=== PATIENT | male | born 1950 | race Two or more races ===

== ENCOUNTER 2017-08-03 05:32 | Emergency (ER) | payer SELFPAY ==
[~2017-08-03] VITALS: Ht 185.4 cm; Wt 104.3 kg
[2017-08-03] MEDS ORDERED: FINASTERIDE (05:49)
--- NOTE | 2017-08-03 05:57 | NUR ---
PT C/O RT BACK PAIN RADIATING TO RT LEG AND LEFT LOWER BACK. STATES HE HAS A HX OF SHINGLES.
--- NOTE | 2017-08-03 05:59 | NUR ---
DR BRIGHT CAVAZOS MD AT BEDSIDE FOR MSE.
--- NOTE | 2017-08-03 06:05 | NUR ---
Patient discharged to home in stable conditon. Written and verbal after care instructions given. Patient verbalizes understanding of instructions. Pt ambulated from ER w/ steady gait. No distress noted.
[2017-08-03 06:06] VITALS: BP 144/89
== END 2017-08-03 06:21 | disposition home or self-care (01) ==
LOC: ER 05:34
DX: M54.31 Sciatica, right side (principal); Z79.899 Other long term (current) drug therapy
CPT/HCPCS: A4663

== ENCOUNTER 2017-08-11 07:26 | Emergency (ER) | payer SELFPAY ==
[~2017-08-11] VITALS: Ht 185.4 cm; Wt 103.0 kg
[~2017-08-11 07:26] MED LIST: FINASTERIDE
--- NOTE | 2017-08-11 07:40 | NUR ---
DR BOONE AT BEDSIDE FOR EVAL.
--- NOTE | 2017-08-11 07:48 | NUR ---
Patient discharged to home in stable conditon. Written and verbal after care instructions given. Patient verbalizes understanding of instructions.
== END 2017-08-11 07:49 | disposition home or self-care (01) ==
LOC: ER 07:26
DX: M54.9 Dorsalgia, unspecified (principal); G89.29 Other chronic pain; Z79.899 Other long term (current) drug therapy
CPT/HCPCS: A4663

== ENCOUNTER 2017-08-16 21:49 | Emergency (ER) | payer SELFPAY ==
[~2017-08-16] VITALS: Ht 185.4 cm; Wt 103.0 kg
--- NOTE | 2017-08-16 22:06 | NUR ---
Patient discharged to home in stable conditon. Written and verbal after care instructions given. Patient verbalizes understanding of instructions.
== END 2017-08-16 22:07 | disposition home or self-care (01) ==
LOC: ER 21:50
DX: Z76.0 Encounter for issue of repeat prescription (principal); Z79.899 Other long term (current) drug therapy
CPT/HCPCS: A4663